=== PATIENT | female | born 1965 | race Hispanic/Latino ===

== ENCOUNTER 2018-06-08 09:26 | Emergency (ER) | payer OTHER ==
[2018-06-08 09:30] VITALS: BMI 34.5
[2018-06-08 09:33] VITALS: TEMP 97.7
--- NOTE | 2018-06-08 10:15 | ED PDOC ---
HPI: Chest Pain <Sandeep Martin - Last Filed: 06/08/18 10:55> History Per: Patient, Family History/Exam Limitations: no limitations Onset/Duration Of Symptoms: Days Current Symptoms Are (Timing): Constant Pain Scale Rating Of: 4 Quality: Sharp Exacerbating Factors: Movement, Deep Breathing Alleviating Factors: Leaning Foreward Additional Complaint(s): Pt is a 53 y/o female with hx of HTN, DM, Hypothyroidism, Hypocalcemia, Thyroid CA s/p resection, left shoulder bursitis presenting to ED for evaluation of left sided lower rib pain and left shoulder pain x 4 days now. States her pain began on Tuesday and has gradually gotten worse. She was woken up by the pain today at 3am which was what prompted her ED visit. She describes the left rib pain as sharp, non radiating, worsened with any movement or deep inspiration, and partially alleviated with Tylenol and topical biofreeze. She describes her shoulder pain as dull/achy with radiation down to fingers. She denies any relation of pain with exertion or food intake, or association with fevers/chills, cough, sob, headache, n/v/d, or any recent trauma. PMD: Dr. Donahue PSurgHx:Thyroid resection NKDA Denies smoking, alcohol, or durg use <Matthew Richter - Last Filed: 06/08/18 12:14> Time Seen by Provider: 06/08/18 09:41 Chief Complaint (Nursing): Chest Pain Supervising Attending Note - Supervising Attending Note The Documented history was done by the: Physician Paint Preparer, Attending Physician The documented physical exam was done by the: Physician Paint Preparer, Attending Physician The documented procedures were done by the: Physician Paint Preparer, Attending Physician - Attestation: I have personally seen and examined this patient.: Yes I have fully participated in the care of the patient.: Yes I have reviewed all pertinent clinical information: Yes - Notes: Notes:: 53 year old F with stated medical history presenting with L rib and L shoulder pain for days, worse with movement, alleviated by APAP and Biofreeze. After toradol and muscle relaxant in ED she is feeling relief, states she had difficulty raising her arm up for the x-ray. Symptoms appear to be musculo- skeletal, not concerned for cardiac involvement at this time. Encouraged patient to followup with Dr. Donahue and cardiology as needed, NSAIDs, rest, muscle relaxants, and lidocaine patch. <Sandeep Martin - Last Filed: 06/08/18 10:55> Past Medical History Vital Signs: Last Vital Signs Temp 97.7 F 06/08/18 09:30 Pulse 70 06/08/18 09:30 Resp 20 06/08/18 09:30 BP 191/94 H 06/08/18 09:30 Pulse Ox 98 06/08/18 10:15 <Sandeep Martin - Last Filed: 06/08/18 10:55> Vital Signs: Last Vital Signs Temp 97.7 F 06/08/18 09:30 Pulse 70 06/08/18 09:30 Resp 20 06/08/18 09:30 BP 191/94 H 06/08/18 09:30 Pulse Ox 98 06/08/18 09:30 - Medical History PMH: HTN - Family History Family History: States: Diabetes, Hypertension Denies: [place], CAD - Immunization History Hx Tetanus Toxoid Vaccination: No Hx Influenza Vaccination: No Hx Pneumococcal Vaccination: No <Matthew Richter - Last Filed: 06/08/18 12:14> - Home Medications Home Medications: Ambulatory Orders Medication Instructions Recorded Cyclobenzaprine [Cyclobenzaprine 10 mg PO BID #15 tab 06/08/18 HCl] Lidocaine 1 each TP DAILY #10 adh..patch 06/08/18 Naproxen [Naprosyn] 500 mg PO BID #30 tablet 06/08/18 - Allergies Allergies/Adverse Reactions: Allergies Allergy/AdvReac Type Severity Reaction Status Date / Time No Known Allergies Allergy Verified 06/08/18 09:48 KAILYN Risk Score for UA/NSTEMI - KAILYN Risk Score Age > 64: NO 3 or more CAD Risk Factors: YES Known CAD (Stenosis greater than 50%): NO Aspirin use in past 7 days: NO Severe Angina: NO EKG ST changes greater than 0.5mm: NO Positive Cardiac Marker: NO KAILYN Score: 1 Risk %: 5% <Matthew Richter - Last Filed: 06/08/18 12:14> Wells Criteria for PE - Wells Criteria for Pulmonary Embolism Clinical Signs and Symptoms of DVT: No P.E is #1 Diagnosis, or Equally Likely: No Heart Rate >100: No Immobilization at least 3 days;Surgery previous 4 weeks: No Previous, objectively diagnosed PE or DVT: No Hemoptysis: No Malignancy w/treatment within 6 months, or palliative: No Total Score: 0 <RoberMatthew - Last Filed: 06/08/18 12:14> Review of Systems Constitutional: Negative for: Fever, Chills, Weakness Cardiovascular: Negative for: Palpitations Respiratory: Negative for: Cough, Shortness of Breath Gastrointestinal: Negative for: Vomiting, Abdominal Pain Musculoskeletal: Positive for: Shoulder Pain <RoberMatthew - Last Filed: 06/08/18 12:14> Physical Exam - Physical Exam Appears: Positive for: In Acute Distress (midl distress, lying still in bed) Head Exam: Positive for: ATRAUMATIC Skin: Negative for: Diaphoresis Neck: Positive for: Normal, Painless ROM Cardiovascular/Chest: Positive for: Regular Rate, Rhythm, Other (+ Chest wall tenderness in left inferior rib ). Negative for: Murmur Respiratory: Positive for: Normal Breath Sounds. Negative for: Accessory Muscle Use, Crackles, Wheezing Gastrointestinal/Abdominal: Positive for: Normal Exam, Bowel Sounds, Soft. Negative for: Tenderness Back: Positive for: Normal Inspection. Negative for: Vertebral Tenderness Extremity: Positive for: Capillary Refill, Other (Right shoulder, focal aneterior and lateral tenderness to palpation, Pain illicited with shoulder movement above the head, motor and sensory in tact, good distal pulses). Negative for: Swelling Neurological/Psych: Positive for: Awake, Alert <RoberMatthew - Last Filed: 06/08/18 12:14> - Laboratory Results Result Diagrams: 06/08/18 10:35 06/08/18 10:35 - ECG O2 Sat by Pulse Oximetry: 98 <RoberMatthew - Last Filed: 06/08/18 12:14> Medical Decision Making Medical Decision Making: Pt is a 53 y/o female with hx of HTN, DM, Hypothyroidism, Hypocalcemia, Thyroid CA s/p resection, left shoulder bursitis presenting to ED for evaluation of left sided lower rib pain and left shoulder pain x 4 days now. Noted to have have elevated BP on presentation but on repeat with proper BP cuff, BP was 156/78 HR70. Appears MSK in etiology. EKG- NSR, LVH CBC CMP Troponin Ca Toradol Chest Xray Left side rib series 1100 reassessed after receiving analgesics, reports some improvement, appears more comfortable 1149 Labs reviewed: CBC, CMP, Ca wnl, Troponin negative. Repeat BP stable. Discussed findings of radiographic images and labs with patient. Advised f/u with PMD for BP management and would benefit from cardiology referral outpatient. Pt verbalized understanding. <Matthew Richter - Last Filed: 06/08/18 12:14> Disposition <Sandeep Martin - Last Filed: 06/08/18 10:55> - Patient ED Disposition Is Patient to be Admitted: No Counseled Patient/Family Regarding: Studies Performed, Diagnosis, Need For Followup, Rx Given - Disposition Disposition: Routine/Home Disposition Time: 12:12 <Matthew Richter - Last Filed: 06/08/18 12:14> - Clinical Impression Clinical Impression: Rib pain on left side, Shoulder pain, left - Disposition Condition: IMPROVED Prescriptions: Cyclobenzaprine [Cyclobenzaprine HCl] 10 mg PO BID #15 tab Lidocaine 1 each TP DAILY #10 adh..patch Naproxen [Naprosyn] 500 mg PO BID #30 tablet Instructions: Pleuritic Chest Pain, Shoulder Pain (DC) Forms: [employer] ([place])
[2018-06-08 10:46] LABS: HEMOGLOBIN 12.6 g/dL (12.0-16.0); MEAN CELL VOLUME 83.6 fl (81.0-99.0); MEAN CORPUSCULAR HEMOGLOBIN 27.9 pg (27.0-31.0); MEAN CORPUSCULAR HGB CONC 33.4 g/dL (33.0-37.0); RBC 4.52 Mil/uL (3.80-5.20); RED CELL DISTRIBUTION WIDTH 12.9 % (11.5-14.5); WHITE BLOOD COUNT 6.4 K/uL (4.8-10.8)
[2018-06-08 10:58] LABS: BLOOD UREA NITROGEN 15 mg/dl (7-17); CALCIUM 8.8 mg/dL (8.4-10.2); GFR NON-AFRICAN AMERICAN > 60
--- NOTE | 2018-06-08 11:41 | RAD ---
Date of service: 06/08/2018 PROCEDURE: Radiographs of the Chest and Left Ribs. HISTORY: rib pain COMPARISON: None available. TECHNIQUE: Frontal radiograph of the chest and multiple oblique radiographs of the left ribs were obtained. FINDINGS: LEFT RIBS: No fracture or focal lesion visualized. LUNGS: Clear. PLEURA: No pneumothorax or pleural fluid. CARDIOVASCULAR: Normal cardiac size. No pulmonary vascular congestion. No aortic atherosclerotic calcification present OTHER FINDINGS: None. IMPRESSION: Unremarkable radiographs of the chest and left ribs. No left rib fracture.
--- NOTE | 2018-06-08 11:41 | RAD ---
Date of service: 06/08/2018 HISTORY: rib pain COMPARISON: No prior. TECHNIQUE: Chest PA and lateral FINDINGS: LUNGS: No active pulmonary disease. PLEURA: No significant pleural effusion identified. No pneumothorax apparent. CARDIOVASCULAR: No aortic atherosclerotic calcification present. Normal cardiac size. No pulmonary vascular congestion. OSSEOUS STRUCTURES: No significant abnormalities. VISUALIZED UPPER ABDOMEN: Normal. OTHER FINDINGS: None. IMPRESSION: No active disease.
[2018-06-08 12:07] VITALS: RESP 18
[2018-06-08 12:20] VITALS: BP 155/79; PULSE 72; O2SAT 99
--- NOTE | 2018-06-12 14:22 | CARD ---
APPROVED REPORT Date of service: 06/08/2018 EKG Measurement Heart [id number] <Conclusion> Normal sinus rhythm Voltage criteria for left ventricular hypertrophy Nonspecific ST abnormality Abnormal ECG
== END 2018-06-08 12:20 | disposition home or self-care (01) ==
LOC: H.ER 09:26
DX: R07.81 Pleurodynia (principal); M25.512 Pain in left shoulder; E03.9 Hypothyroidism, unspecified; E11.9 Type 2 diabetes mellitus without complications; I10 Essential (primary) hypertension; Z85.850 Personal history of malignant neoplasm of thyroid; E83.51 Hypocalcemia
CPT/HCPCS: 71046; 71100; 80048; 82948; 84484; 85027; 96374; 99284; J1885